=== PATIENT | male | born 1960 | race Caucasian/White ===

== ENCOUNTER 2016-05-23 16:32 | Emergency (ER) | payer MEDICARE ==
[~2016-05-23] VITALS: Ht 175.3 cm; Wt 85.0 kg
[~2016-05-23 16:32] MED LIST: ACET-2198 PO; ALEN70TA48 PO; AMLO10TA57 PO; CERA453C2 TOP; CLOB15CR4 TOP; FLUT16SP EA NOSTRIL; GUAI100L60 PO; HYDR30CR53 TOP; IBUP-1724 PO; LORA-358 PO; LOSA1TAB23 PO; MAG-76 PO; MAGN400O4 PO; OMEP20CA81 PO; PHEN100C4 PO; POTA-81 PO; SERT100T12 PO; SERT50TA12 PO; SIMV10TA6 PO; SOLI10TA4 PO; TAMS0.4C46 PO; TRIA15CR3 TOP; [UNRECOGNIZED DRUG - CODE] PO
[2016-05-23 16:35] VITALS: Ht 175.3 cm; Wt 85.0 kg
--- OUTSIDE RECORDS SUMMARY | 2016-05-23 16:37 | XMS REPORT | Continuity of Care Document ---
Author Author [facility] Organization [facility] Address Unknown Phone Unavailable Support Name Relationship Address Phone CAROL ANN ROSARIO DO Caregiver [address] [place] [address] Unavailable KIYA AYOUB MD Caregiver [address] [place] [address] [place] [address] Unavailable GYPSY RUSSO Next Of Kin Unknown [phone] Insurance Providers Guarantor Hamilton Rodgers Address [address] [place] [address] * Email DENIED 16 Payer Medicare Policy Number [id number] Subscriber's Name Hamilton Rodgers Relationship 18 Self Effective Date 86 Advance Directives Directive Response Recorded Date/Time Advanced Directives Type None 02/23/16 1:13pm Chief Complaint and Reason for Visit Chief Complaint Fall Reason for Visit Syncope Problems Active Problems Medical Problem Onset Date Status Chin laceration Unknown Acute Closed head injury Unknown Acute Contusion of rib on left side Unknown Acute Contusion of rib on left side Unknown Acute Contusion of rib on left side Unknown Acute Contusion of rib on left side Unknown Acute Contusion of scalp Unknown Acute Fall Unknown Acute Head contusion Unknown Acute Impetigo Unknown Acute Lumbar pain Unknown Acute Lumbar pain Unknown Acute Skin infection Unknown Acute Wrist pain Unknown Acute Wrist pain Unknown Acute left gluteal abscess-I&D Unknown Acute Past Problems Medical Problem Onset Date Back contusion Unknown Closed fracture of distal clavicle Unknown Musculoskeletal neck pain Unknown Syncope Unknown Medications Current Home Medications Medication Dose Units Route Directions Days Qty Instructions Start Date Acetaminophen (Mapap) 325 Mg Tablet 325-650 Mg Oral Every 6 Hours as needed for Pain/Fever 02/12/16 Alendronate Sodium 70 Mg Tablet 70 Mg Oral Every 7 Days 11/05/14 Amlodipine Besylate (Norvasc) 10 Mg Tablet 10 Mg Oral Daily 09/23 Aspirin (Ecotrin) 81 Mg Tablet. 81 Mg Oral Bedtime 09/23/09 Ceramides 1,3,6-11 (Cerave) 453 Gm Cream..g. 1 Applic Topically Daily 08/10/14 Clobetasol Propionate 15 Gm Cream..g. 1 Applic Topically Twice A Day as needed for Prn Orders 02/12/16 Fluticasone Propionate (Fluticasone Prop 50 Mcg/Actuation Nasal [place]) 120 [place]/16 G [place] 1 [place] Each Nostril Daily 12/12/15 Guaifenesin (Siltussin Sa) 100 Mg/5 Ml Liquid 10-20 Ml Oral Every 4 Hours as needed for Cough 02/12/16 Hydrocortisone 30 Gm Cream..g. 1 Applic Topically Four Times Daily as needed for Itching 02/12/16 Ibuprofen 200 Mg Tablet 200-400 Mg Oral Every 4-6 Hours as needed for Pain 02/12/16 Loratadine 10 Mg Tablet 10 Mg Oral Daily 06/03/11 Losartan/Hydrochlorothiazide (Hyzaar 100-25 Tablet) 1 Tab Tablet 1 Tab Oral Bedtime 09/23/09 Mag Hydrox/Al Hydrox/Simeth (Antacid Liquid) 355 Ml Oral.susp 10-20 Ml Oral Four Times Daily as needed for Indigestion 02/12/16 Magnesium Hydroxide (Milk Of Magnesia) 400 Mg/5 Ml Oral.susp 30-60 Ml Oral Daily as needed for Constipation 02/12/16 Omeprazole (Prilosec) 20 Mg Capsule.dr 20 Mg Oral Daily 09/23/09 Phenytoin Sodium Extended (Dilantin) 100 Mg Capsule 200 Mg Oral Bedtime 11/12/15 Potassium Chloride 20 Meq Tablet.er 20 Meq Oral Give With Breakfast Take 1 tablet, by mouth, daily with breakfast. 02/12/16 Sertraline Hcl (Sertraline) 50 Mg Tablet 50 Mg Oral Daily TAKE WITH 100 MG TO EQUTL 150 MG DAILY 12/12/15 Sertraline Hcl (Sertraline) 100 Mg Tablet 100 Mg Oral Daily TAKE WITH 50 MG TO EQUAL 150 MG DAILY 08/10/14 Simvastatin 10 Mg Tablet 10 Mg Oral Bedtime 08/10/14 Solifenacin (Vesicare) 10 Mg Tablet 10 Mg Oral Daily 08/23/13 Tamsulosin Hcl 0.4 Mg Cap.er.24h 0.4 Mg Oral Bedtime 08/23/13 Triamcinolone (Triamcinolone Acetonide) 15 Applic/15 G Cr 1 Applic Topically Twice A Day 11/12/15 Past Home Medications Medication Directions Ordered Status Acetaminophen/Codeine Phosphate (Tylenol #3) 1 Tab Tablet, 1-2 Tab Oral Every Six Hours for Pain 09/01/13 Discontinued Darifenacin Hydrobromide (Enablex) 15 Mg Tab.sr.24h, 09/23/09 Discontinued Fexofenadine Hcl (Allie) 180 Mg Tablet, 1 Tab Oral Daily 09/23/09 Discontinued Fish Oil , 1000 Mg Oral Daily 09/16/09 Discontinued Lorazepam 0.5 Mg Tablet, 0.5 Mg Oral As Needed 08/23/13 Discontinued Mag Hydrox/Al Hydrox/Simeth (Maalox Plus X-Strength Susp) 355 Ml Oral.susp, 20 Ml Oral As Needed 07/27/08 Discontinued Meloxicam (Mobic) 15 Mg Tablet, 15 Mg Oral Daily 06/03/11 Discontinued Mineral Oil , 09/23/09 Discontinued Mineral Oil , 09/16/09 Discontinued Nasal [place] , 09/16/09 Discontinued Oxybutynin (Oxytrol) 1 Patch.bwk Patch.tdsw, 1 Patch Topically Twice A Week 07/27/08 Discontinued Phenytoin Sodium Extended (Dilantin) 100 Mg Capsule, 2 Cap Oral Bedtime 07/27 Discontinued Prilosec , 20 Mg Oral Daily 09/16/09 Discontinued Rhinocort Aqua 32MCG , 1 Puff Nasal Daily 07/27/08 Discontinued Sertraline Hcl (Zoloft) 100 Mg Tablet, 100 Mg Oral Bedtime 06/03/11 Discontinued Solifenacin (Vesicare) 10 Mg Tablet, 1 Tab Oral Daily 07/27/08 Discontinued Vit C/Echin Purp/Herb11 (Vit C 500 Mg-Echinacea Tab) 500 Mg Tablet, 2 Tab Oral Daily 09/16/09 Discontinued Vitamin E Mixed (Vitamin E) 400 Unit Capsule, 1 Tab Oral Daily 09/23/09 Discontinued Social History Social History Problem Response Recorded Date/Time Onset Date Status Hx Substance Use No 02/23/2016 2:00pm Not Applicable Not Applicable Hx Alcohol Use No 02/23/2016 2:00pm Not Applicable Not Applicable Query Response Start Date Stop Date Smoking Status Unknown if ever smoked Hospital Discharge Instructions No hospital discharge instructions. Plan of Care Discharge Date 02/23/16 4:05pm Disposition 01 DISCHARGED HOME, SELF-CARE Condition at Discharge Stable Instructions/Education Provided DI for Syncope in Adults (Fainting) Prescriptions See Medication Section Referrals NEDICH,CAROL ANN L DO Address: [address] [phone] Additional Instructions/Education Labs were normal except for slight elevation of prolactin which could indicate a seizure. However patient was not postictal with no loss of bladder control. Patient's phenytoin level is normal. Patient head CT indicated no acute findings. Patient should follow with PCP in next 2 days for re-evaluation. Care Plan and Goals Physician Care Plan Problem: Syncope Goal: Follow up with primary care provider in next 2 days Instructions: Take medications and follow care plan as discussed/written Functional Status No functional status results. Allergies, Adverse Reactions, Alerts Allergen Type Severity Reaction Status Last Updated Nitrofurantoin Macrocrystal Allergy Unknown Active 02/23/16 Penicillin Adverse Reaction Unknown Active 02/23/16 Influenza Virus Vaccines Allergy Unknown Active 02/23/16 Iodine Allergy Unknown Active 02/23/16 Erythromycin base Allergy Unknown Active 02/23/16 Nitrofurantoin Allergy Unknown Active 02/23/16 Immunizations Query Response on File Recorded Date/Time Hx Influenza Vaccination N UNKWN 11/04/14 8:20pm Hx Influenza Vaccination N UNKWN 11/04/14 8:20pm Influenza Vaccine Hx NO 02/23/16 2:01pm Vital Signs Acute Vital Signs Vital Response Date/Time Temperature (Fahrenheit) 98.0 deg F (96.8 - 99.1) 02/23/2016 1:13pm Temperature (Calculated Celsius) 36.23210 degrees C (36.0 - 37.3) 02/23/2016 1:13pm Pulse Rate (adult) 73 bpm (60 - 100) 02/23/2016 4:05pm Respiratory Rate 16 breaths/min (10 - 20) 02/23/2016 4:05pm O2 Sat by Pulse Oximetry 98 % (90 - 100) 02/23/2016 4:05pm Blood Pressure 144/93 mm Hg 02/23/2016 4:05pm Height (Feet) 5 feet 02/23/2016 1:13pm Height (Inches) 8.00 inches 02/23/2016 1:13pm Weight (Kilograms) 80.400 kg 02/23/2016 1:13pm Body Mass Index (BMI) 26.0 02/23/2016 1:13pm Results Laboratory Results Test Name Result Units Flags Reference Collection Date/Time Result Date/ Time Comments White Blood Count 4.9 T/MM3 4.5-11.0 02/23/2016 2:02/23/2016 2: 36pm Red Blood Count 5.22 M/MM3 4.50-5.90 02/23/2016 2:02/23/2016 2: 36pm Hemoglobin 16.9 GM/DL 13.5-17.5 02/23/2016 2:02/23/2016 2:36pm Hematocrit 48.5 % 41-53 02/23/2016 2:02/23/2016 2:36pm Mean Corpuscular Volume 92.9 UM3 80-100 02/23/2016 2:02/23/2016 2: 36pm Mean Corpuscular Hemoglobin 32.4 UUG 26-34 02/23/2016 2:2016 2:36pm Mean Corpuscular Hemoglobin Concent 34.8 GM/DL 31-37 02/23/2016 2:02/23/2016 2:36pm RDW Standard Deviation 46.2 FL 36.9-50.2 02/23/2016 2:02/23/2016 2 :36pm Platelet Count 143 T/MM3 130-400 02/23/2016 2:02/23/2016 2:36pm Mean Platelet Volume 11.5 UM3 9.4-12.4 02/23/2016 2:02/23/2016 2: 36pm Neutrophils (%) (Auto) 70.9 % H 33-66 02/23/2016 2:02/23/2016 2: 36pm Lymphocytes (%) (Auto) 15.8 % L 23-45 02/23/2016 2:02/23/2016 2: 36pm Monocytes (%) (Auto) 10.9 % H 0-9.0 02/23/2016 2:02/23/2016 2:36pm Eosinophils (%) (Auto) 2.0 % 0-4 02/23/2016 2:02/23/2016 2:36pm Basophils (%) (Auto) 0.2 % 0-2 02/23/2016 2:02/23/2016 2:36pm Immature Granulocyte % (Auto) 0.2 % 0.0-0.5 02/23/2016 2:2016 2:36pm Absolute Neutrophils (auto) 3.5 T/MM3 1.8-7.7 02/23/2016 2:2016 2:36pm Absolute Lymphocytes (auto) 0.8 T/MM3 L 1-4.8 02/23/2016 2:2016 2:36pm Absolute Monocytes (auto) 0.5 T/MM3 0-0.8 02/23/2016 2:02/23/2016 2:36pm Absolute Eosinophils (auto) 0.1 T/MM3 0-0.5 02/23/2016 2:2016 2:36pm Absolute Basophils (auto) 0.0 T/MM3 0-0.2 02/23/2016 2:02/23/2016 2:36pm Absolute Immature Granulocyte (auto 0.01 T/MM3 0.00-0.03 02/23/2016 2: 02/23/2016 2:36pm Icterus Index < 2 0-7 02/23/2016 2:02/23/2016 2:47pm Chemistry Specimen Hemolysis < 15 0-25 02/23/2016 2:02/23/2016 2 :47pm 0-25: Specimen Exhibited No Hemolysis. Turbidity < 20 0-20 02/23/2016 2:02/23/2016 2:47pm Sodium Level 138 MEQ/L 134-144 02/23/2016 2:02/23/2016 2:47pm Potassium Level 3.6 MEQ/L 3.6-5 02/23/2016 2:02/23/2016 2:47pm Chloride Level 99 MEQ/L 98-107 02/23/2016 2:02/23/2016 2:47pm Carbon Dioxide Level 27 MEQ/L 22-30 02/23/2016 2:02/23/2016 2: 47pm Anion Gap 12 MEQ/L 5-15 02/23/2016 2:02/23/2016 2:47pm Blood Urea Nitrogen 10.0 MG/DL 9-20 02/23/2016 2:02/23/2016 2: 47pm Creatinine 0.7 MG/DL L 0.8-1.5 02/23/2016 2:02/23/2016 2:47pm BUN/Creatinine Ratio 14 RATIO 6-26 02/23/2016 2:02/23/2016 2:47pm Glomerular Filtration Rate Calc 117 02/23/2016 2:02/23/2016 2: 47pm Glucose Level 111 MG/DL H 75-110 02/23/2016 2:02/23/2016 2:47pm Calculated Osmolality 266 MOSM/KG 261-280 02/23/2016 2:02/23/2016 2:47pm Calcium Level 9.4 MG/DL 8.4-10.2 02/23/2016 2:02/23/2016 2:47pm Total Bilirubin 0.50 MG/DL 0.20-1.30 02/23/2016 2:02/23/2016 2: 47pm Alkaline Phosphatase 66 U/L 38-126 02/23/2016 2:02/23/2016 2:47pm Total Protein 7.9 G/DL 6.3-8.2 02/23/2016 2:02/23/2016 2:47pm Albumin 4.4 G/DL 3.5-5.0 02/23/2016 2:02/23/2016 2:47pm Globulin 3.5 G/DL 2.4-3.6 02/23/2016 2:02/23/2016 2:47pm Albumin/Globulin Ratio 1.3 RATIO 1.1-2.2 02/23/2016 2:02/23/2016 2 :47pm Aspartate Amino Transf (AST/SGOT) 25 U/L 17-59 02/23/2016 2:2016 2:47pm Alanine Aminotransferase (ALT/SGPT) 51 U/L 21-72 02/23/2016 2:10/2016 2:47pm Troponin I < 0.012 ng/ml 0-0.12 02/23/2016 2:02/23/2016 2:58pm Troponin values with a difference of 55% increase from orginal troponin value represent a true biological DELTA value. (%increase Calc=Orginal Troponin value, divided by subsequent Troponin value, multiplied by 100) Phenytoin (Dilantin) Level 12.0 UG/ML 10-20 02/23/2016 2:28pm 2016 2:48pm Prolactin 24.1 NG/ML 02/23/2016 2:28pm 02/23/2016 3:03pm Normal Female (Non-): 3.0-18.6 ng/ml; Males: 3.7-17.9 ng/ml Urine Collection Type VOIDED-NOT CC-MIDSTR 02/23/2016 2:282016 2:36pm Urine Color YELLOW YELLOW 02/23/2016 2:28pm 02/23/2016 2:36pm Urine Turbidity CLEAR CLEAR 02/23/2016 2:28pm 02/23/2016 2:36pm Urine Specific [place] 1.010 L 1.015-1.025 02/23/2016 2:28pm 2016 2:36pm Urine pH 6.5 5.0-8.0 02/23/2016 2:28pm 02/23/2016 2:36pm Urine Leukocyte Esterase NEGATIVE NEGATIVE 02/23/2016 2:28pm 2016 2:36pm Urine Nitrite NEGATIVE NEGATIVE 02/23/2016 2:28pm 02/23/2016 2:36pm Urine Protein NEGATIVE NEGATIVE 02/23/2016 2:28pm 02/23/2016 2:36pm Urine Glucose (UA) NEGATIVE NEGATIVE 02/23/2016 2:28pm 02/23/2016 2: 36pm Urine Ketones NEGATIVE NEGATIVE 02/23/2016 2:28pm 02/23/2016 2:36pm Urine Urobilinogen 0.2 EU/DL NORMAL 02/23/2016 2:28pm 02/23/2016 2: 36pm Urine Bilirubin NEGATIVE NEGATIVE 02/23/2016 2:28pm 02/23/2016 2: 36pm Urine Blood NEGATIVE NEGATIVE 02/23/2016 2:28pm 02/23/2016 2:36pm Urinalysis Comment MICROSCOPIC NOT IND. 02/23/2016 2:28pm 2016 2:36pm Name: HAMILTON RODGERS Unit #: [id number] : [id number] Sex: M Admit Date: Loc / Svc: ED Discharge Date: DIAGNOSTIC IMAGING REPORT Report #: [id number] [facility] BRIANNA Lloyd Indication: ITS.REASON: fell, unwitnessed PROCEDURE: CT HEAD W/O CONTRAST: Encounter: Initial Comparison: Brain CT, 08/10/2014 Technique: Axial CT images through the head were performed without contrast. FINDINGS: There is ventriculomegaly consistent with cerebral atrophy and there is prominent transcortical right middle cerebral artery infarction with associated encephalomalacia of the right frontotemporoparietal region and the basal ganglia on the right due to lenticulostriate involvement. No acute infarction, hemorrhage, or mass. There is prominent cerebellar atrophy with chronic ischemic changes of the cerebellum. Visualized paranasal sinuses are clear. No sinus wall expansion or destructive process. IMPRESSION: 1. No acute intracranial abnormality or hemorrhage. 2. Extensive chronic right MCA distribution infarction. 3. Negative for acute intra-cranial process. . Procedures Procedure Status Date Provider(s) Ther/proph/diag inj sc/im Completed 12/12/15 Emergency dept visit Completed 12/12/15 600648"INJECTION, KETOROLAC TROMETHAMINE, PER 15 MG" Completed 12/12/15 X-ray exam l-s spine 2/3 vws Completed 12/24/15 Emergency dept visit Completed 12/24/15 X-ray exam ribs/chest4/> vws Completed 02/12/16 Emergency dept visit Completed 02/12/16 Encounters Encounter Location Arrival/Admit Date Discharge/Depart Date Attending Provider Departed Emergency Room [facility] 02/23/16 1:10pm 02/23/16 4: 05pm KIYA AYOUB MD Departed Emergency Room [facility] 02/12/16 6:21pm 02/12/16 7: 32pm KIYA AYOUB MD Departed Emergency Room [facility] 12/24/15 3:49pm 12/24/15 5: 35pm LIANG MARCELINO MD Departed Emergency Room [facility] 12/12/15 4:49pm 12/12/15 5: 45pm KIYA AYOUB MD Recent Diagnosis
--- OUTSIDE RECORDS SUMMARY | 2016-05-23 16:38 | XMS REPORT | Continuity of Care Document ---
Author Author [facility] Organization [facility] Address Unknown Phone Unavailable Allergies Active Description Code Type Severity Reaction Onset Reported/Identified Relationship to Patient Clinical Status Yes FLU SHOT Drug Allergy N/A N/A Yes IODINE 5933 Drug Allergy N/A N/A Yes MACROLIDE Drug Allergy N/A N/A Yes PCN Drug Allergy N/A N/A Yes iodine NKMA N/A N/A 06/14/2013 Yes penicillin NKMA N/A N/A 06/14/2013 Yes macrolide antibiotics NKMA N/A N/A 08/20/2013 Yes influenza virus vaccine, inact NKMA N/A N/A 06/13/2014 Medications Medication Packaging Start Date Stop Date Route Dosage Sig [id number] 02/21/2012 ORAL daily [id number] 05/11/2013 ORAL twice daily [id number] 11/05/2013 ORAL every 8 hours [id number] 2014 ORAL [id number] 07/30/2014 ORAL [id number] 08/30/2014 ORAL [id number] 09/05/2014 ORAL [id number] 10/01/2014 ORAL Problems Date Dx Coded Attending Type Code Diagnosis Diagnosed By 09/03/2014 Yoav Nunez MD 438.89 OTH LATE EFFECT-CEREBROVASCULAR DISEASE 09/03/2014 Yoav Nunez MD 729.5 PAIN IN LIMB 09/03/2014 Yoav Nunez MD 729.5 PAIN IN LIMB 09/03/2014 Yoav Nunez MD 780.79 OTH MALAISE FATIGUE 09/03/2014 Yoav Nunez MD 729.5 PAIN IN LIMB 09/03/2014 Yoav Nunez MD 780.79 OTH MALAISE FATIGUE 09/03/2014 Yoav Nunez MD 729.5 PAIN IN LIMB 09/03/2014 Yoav Nunez MD 780.79 OTH MALAISE FATIGUE 09/03/2014 Enrique PHAM, Yoav Ford 438.89 OTH LATE EFFECT-CEREBROVASCULAR DISEASE 09/03/2014 Enrique PHAM, Yoav Ford 729.5 PAIN IN LIMB 09/18/2014 Enrique PHAM, Yoav Ford 438.89 OTH LATE EFFECT-CEREBROVASCULAR DISEASE 09/18/2014 Enrique PHAM, Yoav Ford 438.89 OTH LATE EFFECT-CEREBROVASCULAR DISEASE 09/18/2014 Enrique PHAM, Yoav Ford 438.89 OTH LATE EFFECT-CEREBROVASCULAR DISEASE 09/18/2014 Enrique PHAM, Yoav Ford 438.89 OTH LATE EFFECT-CEREBROVASCULAR DISEASE 09/18/2014 Enrique PHAM, Yoav Ford 438.89 OTH LATE EFFECT-CEREBROVASCULAR DISEASE 09/18/2014 Enrique PHAM, Yoav Ford 438.89 OTH LATE EFFECT-CEREBROVASCULAR DISEASE 09/18/2014 Enrique PHAM, Yoav Ford V57.21 09/18/2014 Enrique PHAM, Yoav Ford 438.89 OTH LATE EFFECT-CEREBROVASCULAR DISEASE 09/18/2014 Yoav Nunez MD 438.89 OTH LATE EFFECT-CEREBROVASCULAR DISEASE 09/18/2014 Yoav Nunez MD 438.89 OTH LATE EFFECT-CEREBROVASCULAR DISEASE 09/18/2014 Yoav Nunez MD 438.89 OTH LATE EFFECT-CEREBROVASCULAR DISEASE 09/18/2014 Enrique PHAM, Yoav Ford 438.89 OTH LATE EFFECT-CEREBROVASCULAR DISEASE 09/18/2014 Yoav Nunez MD 438.89 OTH LATE EFFECT-CEREBROVASCULAR DISEASE 03/17/2015 Consuelo Alvarez MD S62.601D FX UNSP PHALANX OF L IDX FNGR, SUBS FOR 03/21/2015 Consuelo Alvarez MD S62.601D FX UNSP PHALANX OF L IDX FNGR, SUBS FOR 03/27/2015 Consuelo Alvarez MD S62.601D FX UNSP PHALANX OF L IDX FNGR, SUBS FOR 03/27/2015 Consuelo Alvarez MD S62.601D FX UNSP PHALANX OF L IDX FNGR, SUBS FOR Procedures Results Encounters ACCT No. Visit Date/Time Discharge Status Pt. Type Provider Facility Loc./Unit Complaint [id number] 04/11/2013 15:34:00 04/11/2013 23 :59:59 CLS Outpatient [id number] 03/28/2013 16:14:00 03/28/2013 23 :59:59 CLS Outpatient [id number] 01/22/2013 13:27:00 01/22/2013 23 :59:59 CLS Outpatient
--- OUTSIDE RECORDS SUMMARY | 2016-05-23 16:38 | XMS REPORT | Continuity of Care Document ---
Author Author [facility] Organization [facility] Address Unknown Phone Unavailable Care Team Providers Care Pattern Developer Name Role Phone COLBY SANCHEZ MD Primary Care Physician [phone] Insurance Providers Payer Name Policy Number Subscriber Name Relationship Medicare [id number] Hamilton Rodgers 17 Self Stefani Thurston [employer] Plan [id number] Hamilton Rodgers 18 Self Problems Medical Problems Problem Onset Date Status left gluteal abscess-I&D Unknown Active Contusion of rib on left side Unknown Active Head contusion Unknown Active Contusion of rib on left side Unknown Active Contusion of rib on left side Unknown Active Wrist pain Unknown Active Contusion of rib on left side Unknown Active Wrist pain Unknown Active Lumbar pain Unknown Active Chin laceration Unknown Active Fall Unknown Active Medications Medication Dose Route Sig Days/Qty Instructions Order Date Discontinued Date Status Alendronate Sodium 1 Tab PO WEEKLY 09/23/09 Active Fexofenadine Hcl 1 Tab PO DAILY 09/23/09 06/03/11 Discontinued Phenytoin Sodium Extended 2 Cap PO BEDTIME 07/27/08 09/16/09 Discontinued Aspirin 1 Tab PO BEDTIME 09/23/09 Active [Fish Oil] 1,000 Mg PO DAILY 09/16/09 09/23/09 Discontinued Losartan/Hydrochlorothiazide 1 Tab PO BEDTIME 09/23/09 Active Mag Hydrox/Al Hydrox/Simeth 20 Ml PO NEEDED 07/27/08 09/16/09 Discontinued Potassium Chloride 20 Meq PO DAILY 09/23/09 Active Amlodipine Besylate 1 Tab PO DAILY 09/23/09 Active Oxybutynin 1 Patch TOP TWICE A WEEK 07/27/08 09/16/09 Discontinued [Prilosec] 20 Mg PO DAILY 09/16/09 09/23/09 Discontinued [Rhinocort Aqua 32MCG] 1 Puff NA DAILY 07/27/08 09/16/09 Discontinued Solifenacin 1 Tab PO DAILY 07/27/08 09/16/09 Discontinued Vit C/Echin Purp/Herb11 2 Tab PO DAILY 09/16/09 09/23/09 Discontinued Darifenacin Hydrobromide 09/23/09 10/28/12 Discontinued [Mineral Oil] 09/16/09 09/23/09 Discontinued [Nasal [place]] 09/16/09 09/23/09 Discontinued Fluticasone Propionate 1 [place] INH DAILY 09/23/09 Active [Mineral Oil] 09/23/09 06/03/11 Discontinued Omeprazole 20 Mg PO DAILY 09/23/09 Active Vitamin E Mixed 1 Tab PO DAILY 09/23/09 09/10/11 Discontinued Loratadine 10 Mg PO DAILY 06/03/11 Active Sertraline Hcl 100 Mg PO BEDTIME TAKE 2 TABS DAILY 06/03/11 10/28/12 Discontinued Meloxicam 15 Mg PO DAILY 06/03/11 10/28/12 Discontinued Docusate Sodium 100 Mg PO EVERY OTHER DAY 06/03/11 Active Ibuprofen 200 Mg PO NEEDED 10/28/12 Active Solifenacin 10 Mg PO DAILY 08/23/13 Active Tamsulosin Hcl 0.4 Mg PO BEDTIME 08/23/13 Active Carbamide Peroxide 15 Ml OT MONTHLY 08/23/13 Active Phenytoin 900 Mg BEDTIME 08/23/13 Active Lorazepam 0.5 Mg PO NEEDED 08/23/13 Active Sertraline Hcl 100 Mg PO DAILY 08/23/13 Active Lorazepam 0.5 Mg PO TWICE A DAY 09/01/13 Active Acetaminophen/Codeine Phosphate 1-2 Tab PO EVERY SIX HOURS For PAIN 30 Qty 09/01/13 Active Social History Social History Problem Response Recorded Date/Time Smoking Status Unknown if ever smoked 08/22/2013 11:10pm Hx Alcohol Use No 09/01/2013 9:35am Query Response Start Date Stop Date Smoking Status Never smoker Hospital Discharge Instructions No hospital discharge instructions. Plan of Care No plan of care. Functional Status Query Response Date Recorded Physical Hygiene Assist September 01, 2013 9:35am Disabilities None September 01, 2013 9:35am Devices Used Cane Prothesis September 01, 2013 9:35am Dressing Assist September 01, 2013 9:35am Ambulation Assist September 01, 2013 9:35am Diet Assist September 01, 2013 9:35am Mental Status Alert August 23, 2013 2:30am Disabilities None September 01, 2013 9:35am Devices Used Cane Prothesis September 01, 2013 9:35am Physical Hygiene Assist September 01, 2013 9:35am Dressing Assist September 01, 2013 9:35am Ambulation Assist September 01, 2013 9:35am Diet Assist September 01, 2013 9:35am Allergies, Adverse Reactions, Alerts Allergen Type Severity Reaction Status Last Updated Nitrofurantoin Macrocrystal Allergy Unknown Active 10/28/12 Penicillin Adverse Reaction Unknown Active 10/28/12 Iodine Allergy Unknown Active 10/28/12 Erythromycin base Allergy Unknown Active 10/28/12 Nitrofurantoin Allergy Unknown Active 10/28/12 Immunizations Name Given Type Hx Influenza Vaccination UNKWN Historical Hx Influenza Vaccination UNKWN Historical Vital Signs Acute Vital Signs Vital Response Date/Time Temperature (Fahrenheit) 97.6 deg F (96.8 - 99.1) Temperature (Calculated Celsius) 36.84389 degrees C (36.0 - 37.3) Pulse Rate (adult) 76 bpm (60 - 100) Respiratory Rate 16 breaths/min (10 - 20) O2 Sat by Pulse Oximetry 95 % (90 - 100) Blood Pressure 132/96 mm Hg Height 5 ft 9 in Weight 179 lb Body Mass Index 26.0 kg/m^2 Results Test Source Date Result Interp. Ref. Range Comments Alanine Aminotransferase (ALT/SGPT) September 01, 2013 12:38pm 48 U/L N 21- 72 Albumin September 01, 2013 12:38pm 3.9 G/DL N 3.5-5.0 Albumin/Globulin Ratio September 01, 2013 12:38pm 1.2 RATIO N 1.1-2.2 Alkaline Phosphatase September 01, 2013 12:38pm 79 U/L N 38-126 Anion Gap September 01, 2013 12:38pm 10 MEQ/L N 5-15 Aspartate Amino Transf (AST/SGOT) September 01, 2013 12:38pm 26 U/L N 17-59 BUN/Creatinine Ratio September 01, 2013 12:38pm 23 RATIO N 6-26 Basophils # (Auto) September 01, 2013 12:38pm 0.0 T/MM3 N 0-0.2 Basophils (%) (Auto) September 01, 2013 12:38pm 0.4 % N 0-2 Blood Urea Nitrogen September 01, 2013 12:38pm 14.0 MG/DL N 9-20 Calcium Level September 01, 2013 12:38pm 8.5 MG/DL N 8.4-10.2 Calculated Osmolality September 01, 2013 12:38pm 265 MOSM/KG N 261-280 Carbon Dioxide Level September 01, 2013 12:38pm 25 MEQ/L N 22-30 Chemistry Specimen Hemolysis September 01, 2013 12:38pm < 15 0-25 0-25: No Hemolysis.26-70: Slight Hemolysis - can falsely elevate K and Urine Protein. 71-285: Moderate Hemolysis - can falsely elevate K, Troponin I, CA 19-9, PTH, CSF GLucose, and Urine Protein, and can falsely decrease Phenytoin. 286-999: Gross Hemolysis - can falsely elevate K, Troponin I, CA 19-9, PTH, CSF Glucose, and Urine Protine, and can falsely decrease Phenytoin. Recommend specimen recollection. Chloride Level September 01, 2013 12:38pm 102 MEQ/L N 98-107 Conjugated Bilirubin November 12, 2011 1:05am 0.00 MG/DL N 0.00-0.30 Creatinine September 01, 2013 12:38pm 0.6 MG/DL L 0.8-1.5 Eosinophils # (Auto) September 01, 2013 12:38pm 0.2 T/MM3 N 0-0.5 Eosinophils (%) (Auto) September 01, 2013 12:38pm 2.6 % N 0-4 Globulin September 01, 2013 12:38pm 3.2 G/DL N 2.4-3.6 Glomerular Filtration Rate Calc September 01, 2013 12:38pm 140 - Glucose Level September 01, 2013 12:38pm 107 MG/DL N 75-110 Hematocrit September 01, 2013 12:38pm 45.4 % N 41-53 Hemoglobin September 01, 2013 12:38pm 15.9 GM/DL N 13.5-17.5 Icterus Index September 01, 2013 12:38pm < 2 0-7 Immature Granulocyte # (Auto) September 01, 2013 12:38pm 0.02 T/MM3 N 0.00- 0.03 Immature Granulocyte % (Auto) September 01, 2013 12:38pm 0.3 % N 0.0-0.5 Lab Scanned Report November 16, 2011 8:08am REFERENCE LAB [id number] - Levetiracetam (Keppra) Level November 12, 2011 1:05am Ref lab rpt scanned - --- 11/16/11 [id number] ---LEVET previously reported as: SEND OUT Lymphocytes # (Auto) September 01, 2013 12:38pm 1.1 T/MM3 N 1-4.8 Lymphocytes (%) (Auto) September 01, 2013 12:38pm 14.5 % L 23-45 Mean Corpuscular Hemoglobin September 01, 2013 12:38pm 32.1 UUG N 26-34 Mean Corpuscular Hemoglobin Concent September 01, 2013 12:38pm 35.0 GM/DL N 31-37 Mean Corpuscular Volume September 01, 2013 12:38pm 91.5 UM3 N 80-100 Mean Platelet Volume September 01, 2013 12:38pm 11.5 UM3 N 9.4-12.4 Monocytes # (Auto) September 01, 2013 12:38pm 0.9 T/MM3 H 0-0.8 Monocytes (%) (Auto) September 01, 2013 12:38pm 11.9 % H 0-9.0 Neutrophils # (Auto) September 01, 2013 12:38pm 5.4 T/MM3 N 1.8-7.7 Neutrophils (%) (Auto) September 01, 2013 12:38pm 70.3 % H 33-66 Phenytoin (Dilantin) Level September 01, 2013 12:38pm 24.8 UG/ML H 10-20 Platelet Count September 01, 2013 12:38pm 163 T/MM3 N 130-400 Potassium Level September 01, 2013 12:38pm 3.5 MEQ/L L 3.6-5 RDW Standard Deviation September 01, 2013 12:38pm 47.1 FL N 36.9-50.2 Red Blood Count September 01, 2013 12:38pm 4.96 M/MM3 N 4.50-5.90 Sodium Level September 01, 2013 12:38pm 137 MEQ/L N 134-144 Tests Not Done July 27, 2008 10:47pm Not done - Has specimen been collected/obtained? Y Thyroid Stimulating Hormone (TSH) September 23, 2009 10:05pm 0.84 MIU/ML N 0.47-4.68 Total Bilirubin September 01, 2013 12:38pm 0.20 MG/DL N 0.20-1.30 Total Protein September 01, 2013 12:38pm 7.1 G/DL N 6.3-8.2 Turbidity September 01, 2013 12:38pm < 20 0-20 Unconjugated Bilirubin November 12, 2011 1:05am 0.00 MG/DL N 0.00-1.10 Urinalysis Comment September 01, 2013 1:20pm Microscopic not ind. - Has specimen been collected/obtained? Y Urine Acetaminophen Screen November 12, 2011 1:00am Negative NG/ML - Urine Amphetamines Screen November 12, 2011 1:00am Negative NG/ML - Urine Barbiturates Screen November 12, 2011 1:00am Negative NG/ML - Urine Benzodiazepines Screen November 12, 2011 1:00am Negative NG/ML - Urine Bilirubin September 01, 2013 1:20pm Negative - Has specimen been collected/obtained? Y Urine Blood September 01, 2013 1:20pm Negative - Has specimen been collected/obtained? Y Urine Cannabinoids Screen November 12, 2011 1:00am Negative NG/ML - Urine Cocaine Screen November 12, 2011 1:00am Negative NG/ML - Urine Collection Type September 01, 2013 1:20pm Voided-not cc-midstr - Has specimen been collected/obtained? Y Urine Color September 01, 2013 1:20pm Yellow - Has specimen been collected /obtained? Y Urine Glucose (UA) September 01, 2013 1:20pm Negative - Has specimen been collected/obtained? Y Urine Ketones September 01, 2013 1:20pm Negative - Has specimen been collected/obtained? Y Urine Leukocyte Esterase September 01, 2013 1:20pm Negative - Has specimen been collected/obtained? Y Urine Methadone Screen November 12, 2011 1:00am Negative NG/ML - Urine Methamphetamines Screen November 12, 2011 1:00am Negative NG/ML - Urine Microscopic Not Indicated November 12, 2011 1:00am Not indicated - Has specimen been collected/obtained? Y Urine Nitrite September 01, 2013 1:20pm Negative - Has specimen been collected/obtained? Y Urine Opiates Screen November 12, 2011 1:00am Negative NG/ML - Urine Phencyclidine Screen November 12, 2011 1:00am Negative NG/ML - Urine Protein September 01, 2013 1:20pm Negative - Has specimen been collected/obtained? Y Urine Specific [place] September 01, 2013 1:20pm 1.010 L - Has specimen been collected/obtained? Y Urine Tricyclic Antidepressants November 12, 2011 1:00am Negative NG/ML - Urine Turbidity September 01, 2013 1:20pm Clear - Has specimen been collected/obtained? Y Urine Urobilinogen September 01, 2013 1:20pm 0.2 EU/DL - Has specimen been collected/obtained? Y Urine pH September 01, 2013 1:20pm 7.0 - Has specimen been collected/ obtained? Y White Blood Count September 01, 2013 12:38pm 7.7 T/MM3 N 4.5-11.0 Gram Stain Abscess October 28, 2012 6:15pm Procedures No known history of procedures. Encounters Encounter Location Date/Time Registered Emergency Room [facility] 09/01/13 9:27am Departed Emergency Room [facility] 08/22/13 11:09pm Recent Diagnosis
--- NOTE | 2016-05-23 16:39 | NUR ---
PROVIDER DR AYOUB IN ROOM TO SEE PT
--- OUTSIDE RECORDS SUMMARY | 2016-05-23 16:40 | XMS REPORT | Continuity of Care Document ---
Author Author [facility] Organization [facility] Address Unknown Phone Unavailable Allergies Active [...] Status Pt. Type Provider Facility Loc./Unit Complaint [id number] 04/11/2013 15:34:00 04/11/2013 23 :59:59 C[facility] Outpatient [id number] 03/28/2013 16:14:00 03/28/2013 23 :59:59 CLS Outpatient [id number] 01/22/2013 13:27:00 01/22/2013 23 :59:59 CLS Outpatient
--- NOTE | 2016-05-23 16:41 | ERPDOC ---
Departure Disposition Decision Date: May 23, 2016 Disposition Decision Time: 16:44 Disposition: 01 DISCHARGED HOME, SELF-CARE Impression Impression Impression: Primary Impression: Fall on same level Encounter type: initial encounter Qualified Codes: W18.30XA - Fall on same level, unspecified, initial encounter Additional Impression: Fall with no significant injury Encounter type: initial encounter Qualified Codes: W19.XXXA - Unspecified fall, initial encounter Severity: Mild Condition: Stable Seen By: Physician only Referrals: CAROL ANN ROSARIO DO (Family) Patient Instructions: Fall Prevention (ED) Problems/Meds/Labs Reviewed?: Yes Medications reviewed and manag: Yes Follow up care ordered?: Yes Mental Status: Alert, Oriented HPI - Fall/Injury General Chief Complaint: Fall Stated Complaint: FELL BACKWARDS Time Seen by Provider: 16:40 Source: patient Exam Limitations: no limitations HPI - Fall/Injury Initial Comments Patient is a [age]-year-old male, presents emergency room for evaluation status post fall. Patient fell at residential home, did hit the back of his head in a shoulder. Patient did not lose consciousness, patient is without complaint at this time, did tell staff at facility he was fine, however their policy as he is required to be evaluated by a physician. Patient without complaint Occurred At: home Onset: Rapid Duration: 1 hr Pain Scale: Now & Worst: 0/10 Injuries/Pain Location: no injury Loss of Consciousness: no loss of consciousness Allergies: Coded Allergies: Influenza Virus Vaccines (Verified Allergy, Unknown, 05/23/16) Nitrofurantoin Macrocrystal (Verified Allergy, Unknown, 05/23/16) erythromycin base (Verified Allergy, Unknown, 05/23/16) iodine (Verified Allergy, Unknown, 05/23/16) nitrofurantoin (Verified Allergy, Unknown, 05/23/16) Penicillins (Verified Adverse Reaction, Unknown, 05/23/16) Past History Past Medical History Metabolic: hypercholesterolemia, hypertension Respiratory: asthma GI: GERD Male: BPH Neurological: CVA, chronic disability, seizures Musculoskeletal: back pain, neck pain, other Integumentary: other Hematologic: DVT Psychological: depression Surgical History Joint: foot Family History Family PMH: FOUND: hypertension Vaccines Hx Influenza Vaccination: No (UNKWN) Social History Housing: other Current Occupational Status: unemployed, disabled Review of Systems Constitutional Constitutional: DENIES: fever Eyes Vision: DENIES: double vision, loss of visual carter ENMT Sinuses: DENIES: congestion, rhinorrhea Mouth/Throat: DENIES: scratchy throat, sore throat Cardiovascular Cardiac: DENIES: chest pain, dyspnea on exertion Pulmonary Respiratory: DENIES: cough, dyspnea, sputum, tachypnea GI Upper Abdomen: DENIES: nausea, pain, vomiting Lower Abdomen: DENIES: constipation, diarrhea, pain Musculoskeletal General: DENIES: cramps, pain, weakness Integumentary Skin: DENIES: color change, itching, rash Neurological General: DENIES: change in strength, headache, numbness, weakness Psychiatric Psychiatric: DENIES: emotional instability Endocrine Endocrine: DENIES: heat/cold intolerance Hematologic/Lymphatic Hematologic/Lymphatic: DENIES: anemia Physical Exam General General Nourishment: well nourished, well developed General Body Habitus: well groomed Vitals and Pain Weight: Kilograms: Height (feet): 5 Height (inches): 8.00 Triage Pain Scale: RN VS reviewed by Provider: Yes Eyes (brief) Eyes Brief: found: EOMI, PERRL ENMT (brief) ENMT Brief: FOUND: TM clear, TM good light reflex, ear canals clear, mucosa moist, normal dentition, NOT FOUND: nasal erythema, nasal exudate, nasal swelling, pharnyx erythema, tonsillar deviation Neck (brief) Neck: NOT FOUND: adenopathy, spasm, tenderness Respiratory (brief) Respiratory: FOUND: clear all carter, equal bilaterally, NOT FOUND: rales, tenderness, wheezes Cardiovascular (brief) Cardiac: FOUND: regular rate, regular rhythm Capillary Refill: <2 sec Abdomen (brief) Abdominal Brief: FOUND: bowel normo active x4, soft, NOT FOUND: distended, tender Lymphatic (brief) Lymphatic Brief: NOT FOUND: adenopathy Musculoskeletal (brief) Musculoskeletal Brief: NOT FOUND: spasm, tenderness Integumentary (brief) Integumentary Brief: FOUND: dry, pink, warm, NOT FOUND: rash Neurologic Mental Status: FOUND: alert, oriented GCS Adult : GCS Eye Opening: (4)Spontaneous GCS Verbal: (5)Oriented GCS Motor: (6)Obeys Commands GCS Total: 15 Cranial Nerves: FOUND: other (cranial nerves II through XII intact) Motor : Motor Side: bilateral Motor Location: biceps, triceps, wrist, finger extensors, finger flexors, quadriceps, hamstring, foot extension, foot flexion, building energy consultant strength Motor Degree: 3 Sensation: FOUND: soft touch intact x4 ext DTR's : DTR Side: bilateral DTR Location: Biceps, Patellar DTR Grade: 2+ Psychiatric (brief) Psychiatric Brief: FOUND: alert, oriented Differential Diagnoses Considering: Abrasion, Epidural Hematoma, Dislocation, Fracture, Sprain, Strain , Subdural Hematoma KIYA AYOUB MD May 23, 2016 16:41
--- NOTE | 2016-05-23 16:42 | NUR ---
Kailyn mcmahan in ED - 05/23/16 at [address] AYOUB AT BEDSIDE FOR EXAM.
--- OUTSIDE RECORDS SUMMARY | 2016-05-23 16:42 | XMS REPORT | Continuity of Care Document ---
Author Author [facility] Organization [facility] Address Unknown Phone Unavailable Care Team Providers Care Director [employer] Name Role Phone COLBY SANCHEZ MD Primary Care Physician [phone] Insurance Providers Payer Name Policy Number Subscriber Name Relationship Medicare [id number] Hamilton Rodgers 17 Self Stefani [place] [employer] Plan [id number] Hamilton Rodgers 17 Self Problems Medical Problems Problem Onset Date Status left gluteal abscess-I&D Unknown Active Contusion of rib on left side Unknown Active Head contusion Unknown Active Contusion of rib on left side Unknown Active Contusion of rib on left side Unknown Active Wrist pain Unknown Active Medications Medication Dose Route Sig Days/Qty Instructions Order Date Discontinued Date Status Alendronate Sodium 1 Tab PO WEEKLY 09/23/09 Active Fexofenadine Hcl 1 Tab PO DAILY 09/23/09 06/03/11 Discontinued Phenytoin Sodium Extended 2 Cap PO BEDTIME 07/27/08 09/16/09 Discontinued Aspirin 1 Tab PO BEDTIME 09/23/09 Active [Fish Oil] 1,000 Mg PO DAILY 09/16/09 09/23/09 Discontinued Tamsulosin Hcl 1 Cap PO BEDTIME 09/23/09 Active Garlic 1 Tab PO DAILY 09/23/09 Active Losartan/Hydrochlorothiazide 1 Tab PO BEDTIME 09/23/09 Active Levetiracetam 1,000 Mg PO TWICE A DAY TAKES 1000 MG IN AM AND 1500 MG IN PM 09/23/09 Active Mag Hydrox/Al Hydrox/Simeth 20 Ml PO NEEDED 07/27/08 09/16/09 Discontinued Potassium Chloride 20 Meq PO DAILY 09/23/09 Active Amlodipine Besylate 1 Tab PO DAILY 09/23/09 Active Calcium Carbonate/Vitamin D3 1 Tab PO TWICE A DAY 09/23/09 Active Oxybutynin 1 Patch TOP TWICE A WEEK 07/27/08 09/16/09 Discontinued [Prilosec] 20 Mg PO DAILY 09/16/09 09/23/09 Discontinued [Rhinocort Aqua 32MCG] 1 Puff NA DAILY 07/27/08 09/16/09 Discontinued Solifenacin 1 Tab PO DAILY 07/27/08 09/16/09 Discontinued Vit C/Echin Purp/Herb11 2 Tab PO DAILY 09/16/09 09/23/09 Discontinued Darifenacin Hydrobromide 09/23/09 10/28/12 Discontinued [Mineral Oil] 09/16/09 09/23/09 Discontinued [Nasal [place]] 09/16/09 09/23/09 Discontinued Fish Oil/[place]-3 Fatty Acids 1 Tab PO DAILY 09/23/09 Active Fluticasone Propionate 1 [place] INH DAILY 09/23/09 Active [Mineral Oil] 09/23/09 06/03/11 Discontinued Omeprazole 20 Mg PO DAILY 09/23/09 Active Cyanocobalamin 1,000 Mcg PO DAILY 09/23/09 Active Ascorbic Acid 500 Mg PO DAILY 09/23/09 Active Vitamin E Mixed 1 Tab PO DAILY 09/23/09 09/10/11 Discontinued Loratadine 10 Mg PO DAILY 06/03/11 Active Sertraline Hcl 100 Mg PO BEDTIME 06/03/11 10/28/12 Discontinued Meloxicam 15 Mg PO DAILY 06/03/11 10/28/12 Discontinued Docusate Sodium 100 Mg PO DAILY 06/03/11 Active Ibuprofen 200 Mg PO NEEDED 10/28/12 Active Solifenacin 10 Mg PO DAILY 08/23/13 Active Tamsulosin Hcl 0.4 Mg PO BEDTIME 08/23/13 Active Carbamide Peroxide 15 Ml OT MONTHLY 08/23/13 Active Phenytoin 900 Mg BEDTIME 08/23/13 Active Lorazepam 0.5 Mg PO NEEDED 08/23/13 Active Sertraline Hcl 100 Mg PO DAILY 08/23/13 Active Social History Social History Problem Response Recorded Date/Time Smoking Status Unknown if ever smoked 08/22/2013 11:10pm Hx Alcohol Use No 08/22/2013 11:10pm Query Response Start Date Stop Date Smoking Status Never smoker Hospital Discharge Instructions No hospital discharge instructions. Plan of Care No plan of care. Functional Status Query Response Date Recorded Mental Status Alert August 23, 2013 2:30am Allergies, Adverse Reactions, Alerts Allergen Type Severity Reaction Status Last Updated Nitrofurantoin Macrocrystal Allergy Unknown Active 10/28/12 Penicillin Adverse Reaction Unknown Active 10/28/12 Iodine Allergy Unknown Active 10/28/12 Erythromycin base Allergy Unknown Active 10/28/12 Nitrofurantoin Allergy Unknown Active 10/28/12 Immunizations Name Given Type Hx Influenza Vaccination UNKWN Historical Hx Influenza Vaccination UNKWN Historical Vital Signs Acute Vital Signs Vital Response Date/Time Temperature (Fahrenheit) 98.4 deg F (96.8 - 99.1) Temperature (Calculated Celsius) 36.21601 degrees C (36.0 - 37.3) Pulse Rate (adult) 77 bpm (60 - 100) Respiratory Rate 18 breaths/min (10 - 20) O2 Sat by Pulse Oximetry 97 % (90 - 100) Blood Pressure 128/88 mm Hg Height 5 ft 7 in Weight 194 lb Body Mass Index 30.0 kg/m^2 Results Test Source Date Result Interp. Ref. Range Comments Alanine Aminotransferase (ALT/SGPT) November 12, 2011 1:05am 42 U/L N 21-72 Albumin November 12, 2011 1:05am 4.2 G/DL N 3.5-5.0 Albumin/Globulin Ratio November 12, 2011 1:05am 1.2 RATIO N 1.1-2.2 Alkaline Phosphatase November 12, 2011 1:05am 59 U/L N 38-126 Anion Gap November 12, 2011 1:05am 12 MEQ/L N 5-15 Aspartate Amino Transf (AST/SGOT) November 12, 2011 1:05am 26 U/L N 17- 59 BUN/Creatinine Ratio November 12, 2011 1:05am 23 RATIO N 6-26 Basophils # (Auto) November 12, 2011 1:05am 0.0 T/MM3 N 0-0.2 Basophils (%) (Auto) November 12, 2011 1:05am 0.3 % N 0-2 Blood Urea Nitrogen November 12, 2011 1:05am 18.0 MG/DL N 9-20 Calcium Level November 12, 2011 1:05am 9.4 MG/DL N 8.4-10.2 Calculated Osmolality November 12, 2011 1:05am 265 MOSM/KG N 261-280 Carbon Dioxide Level November 12, 2011 1:05am 25 MEQ/L N 22-30 Chloride Level November 12, 2011 1:05am 99 MEQ/L N 98-107 Conjugated Bilirubin November 12, 2011 1:05am 0.00 MG/DL N 0.00-0.30 Creatinine November 12, 2011 1:05am 0.8 MG/DL N 0.8-1.5 Eosinophils # (Auto) November 12, 2011 1:05am 0.2 T/MM3 N 0-0.5 Eosinophils (%) (Auto) November 12, 2011 1:05am 2.9 % N 0-4 Globulin November 12, 2011 1:05am 3.5 G/DL N 2.4-3.6 Glucose Level November 12, 2011 1:05am 108 MG/DL N 75-110 Hematocrit November 12, 2011 1:05am 44.6 % N 41-53 Hemoglobin November 12, 2011 1:05am 15.6 GM/DL N 13.5-17.5 Levetiracetam (Keppra) Level November 12, 2011 1:05am Ref lab rpt scanned - --- 11/16/11 0754 ---LEVET previously reported as: SEND OUT Lymphocytes # (Auto) November 12, 2011 1:05am 0.8 T/MM3 L 1-4.8 Lymphocytes (%) (Auto) November 12, 2011 1:05am 10.2 % L 23-45 Mean Corpuscular Hemoglobin November 12, 2011 1:05am 30.7 UUG N 26-34 Mean Corpuscular Hemoglobin Concent November 12, 2011 1:05am 35.0 GM/DL N 31-37 Mean Corpuscular Volume November 12, 2011 1:05am 87.8 UM3 N 80-100 Mean Platelet Volume November 12, 2011 1:05am 11.5 UM3 N 9.4-12.4 Monocytes # (Auto) November 12, 2011 1:05am 0.7 T/MM3 N 0-0.8 Monocytes (%) (Auto) November 12, 2011 1:05am 9.2 % H 0-9.0 Neutrophils # (Auto) November 12, 2011 1:05am 6.2 T/MM3 N 1.8-7.7 Neutrophils (%) (Auto) November 12, 2011 1:05am 77.1 % H 33-66 Phenytoin (Dilantin) Level July 27, 2008 9:25pm < 3.0 UG/ML L 10-20 Platelet Count November 12, 2011 1:05am 156 T/MM3 N 130-400 Potassium Level November 12, 2011 1:05am 3.5 MEQ/L L 3.6-5 RDW Standard Deviation November 12, 2011 1:05am 45.4 FL N 36.9-50.2 Red Blood Count November 12, 2011 1:05am 5.08 M/MM3 N 4.50-5.90 Sodium Level November 12, 2011 1:05am 136 MEQ/L N 134-144 Tests Not Done July 27, 2008 10:47pm Not done - Has specimen been collected/obtained? Y Thyroid Stimulating Hormone (TSH) September 23, 2009 10:05pm 0.84 MIU/ML N 0.47-4.68 Total Bilirubin November 12, 2011 1:05am 0.40 MG/DL N 0.20-1.30 Total Protein November 12, 2011 1:05am 7.7 G/DL N 6.3-8.2 Unconjugated Bilirubin November 12, 2011 1:05am 0.00 MG/DL N 0.00-1.10 Urine Amphetamines Screen November 12, 2011 1:00am Negative NG/ML - Urine Barbiturates Screen November 12, 2011 1:00am Negative NG/ML - Urine Benzodiazepines Screen November 12, 2011 1:00am Negative NG/ML - Urine Bilirubin November 12, 2011 1:00am Negative - Has specimen been collected/obtained? Y Urine Blood November 12, 2011 1:00am Negative - Has specimen been collected/obtained? Y Urine Cocaine Screen November 12, 2011 1:00am Negative NG/ML - Urine Collection Type November 12, 2011 1:00am Voided - Has specimen been collected/obtained? Y Urine Color November 12, 2011 1:00am Yellow - Has specimen been collected/obtained? Y Urine Glucose (UA) November 12, 2011 1:00am Negative - Has specimen been collected/obtained? Y Urine Ketones November 12, 2011 1:00am Negative - Has specimen been collected/obtained? Y Urine Leukocyte Esterase November 12, 2011 1:00am Negative - Has specimen been collected/obtained? Y Urine Methamphetamines Screen November 12, 2011 1:00am Negative NG/ML - Urine Nitrite November 12, 2011 1:00am Negative - Has specimen been collected/obtained? Y Urine Opiates Screen November 12, 2011 1:00am Negative NG/ML - Urine Phencyclidine Screen November 12, 2011 1:00am Negative NG/ML - Urine Protein November 12, 2011 1:00am Negative - Has specimen been collected/obtained? Y Urine Specific [place] November 12, 2011 1:00am 1.015 - Has specimen been collected/obtained? Y Urine Tricyclic Antidepressants November 12, 2011 1:00am Negative NG/ML - Urine Turbidity November 12, 2011 1:00am Clear - Has specimen been collected/obtained? Y Urine Urobilinogen November 12, 2011 1:00am Normal EU/DL - Has specimen been collected/obtained? Y Urine pH November 12, 2011 1:00am 6.5 - Has specimen been collected/ obtained? Y White Blood Count November 12, 2011 1:05am 8.0 T/MM3 N 4.5-11.0 Lab Scanned Report November 16, 2011 8:08am [facility]FER[facility] LAB [id number] - Urine Methadone Screen November 12, 2011 1:00am Negative NG/ML - Urine Cannabinoids Screen November 12, 2011 1:00am Negative NG/ML - Glomerular Filtration Rate Calc November 12, 2011 1:05am 102 - Immature Granulocyte # (Auto) November 12, 2011 1:05am 0.02 T/MM3 N 0.00-0.03 Immature Granulocyte % (Auto) November 12, 2011 1:05am 0.3 % N 0.0-0.5 Urine Acetaminophen Screen November 12, 2011 1:00am Negative NG/ML - Urine Microscopic Not Indicated November 12, 2011 1:00am Not indicated - Has specimen been collected/obtained? Y Gram Stain Abscess October 28, 2012 6:15pm Procedures No known history of procedures. Encounters Encounter Location Date/Time Departed Emergency Room [facility] 08/22/13 11:09pm Recent Diagnosis
[2016-05-23 16:53] VITALS: BP 116/69; PULSE 88; RESP 18; TEMP 97.8; O2SAT 98
--- NOTE | 2016-05-23 16:53 | NUR ---
DISCHARGE WRITTEN INSTRUCTIONS REVIEWED AND SENT WITH PT. PT VERBALIZES UNDERSTANDING OF DI, DENIES QUESTIONS. CONTINUES TO DENY COMPLAINT ON DISMISSAL. PT EXITS ER BY W/C PER [facility] AT THIS TIME.
--- OUTSIDE RECORDS SUMMARY | 2016-05-23 17:03 | XMS REPORT | Continuity of Care Document ---
Author Author [facility] Organization [facility] Address Unknown Phone Unavailable Care Team Providers Care Heavy Cleaner Name Role Phone COLBY SANCHEZ MD Primary Care Physician [phone] Insurance Providers Payer Name Policy Number Subscriber Name Relationship Medicare [id number] Hamilton Rodgers 17 Self Stefani [place] Margin[employer] Plan [id number] Hamilton Rodgers 17 Self Problems Medical Problems [...] Discontinued [Mineral Oil] 09/16/09 09/23/09 Discontinued [Nasal [place]] 09/16/09 09/23/09 Discontinued Fluticasone Propionate 1 [place] INH DAILY 09/23/09 Active [Mineral Oil] 09/23/09 [...] F (96.8 - 99.1) Temperature (Calculated Celsius) 36.69949 degrees C (36.0 - 37.3) Pulse Rate [...] Report November 16, 2011 8:08am REFERENCE LAB [id number] - Levetiracetam (Keppra) Level November 12, 2011 [...] Has specimen been collected/obtained? Y Urine Specific [place] September 01, 2013 1:20pm 1.010 L - [...] Encounters Encounter Location Date/Time Registered Emergency Room [facility] 09/01/13 9:27am Departed Emergency Room [facility] 08/22/13 11:09pm Recent Diagnosis
--- OUTSIDE RECORDS SUMMARY | 2016-05-23 17:03 | XMS REPORT | Continuity of Care Document ---
Author Author [facility] Organization [facility] Address Unknown Phone Unavailable Allergies Active [...] Nunez MD 729.5 PAIN IN LIMB 09/03/2014 Yova Nunez MD 780.79 OTH MALAISE FATIGUE 09/03/2014 [...] Status Pt. Type Provider Facility Loc./Unit Complaint [id number] 04/11/2013 15:34:00 04/11/2013 23 :59:59 CLS Outpatient [id number] 03/28/2013 16:14:00 03/28/2013 23 :59:59 CLS Outpatient [id number] 01/22/2013 13:27:00 01/22/2013 23 :59:59 CLS Outpatient
--- OUTSIDE RECORDS SUMMARY | 2016-05-23 17:05 | XMS REPORT | Continuity of Care Document ---
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 Type Provider Facility Loc./Unit Complaint [id number] 04/11/2013 15:34:00 04/11/2013 23 :59:59 CLS Outpatient [id number] 03/28/2013 16:14:00 03/28/2013 23 :59:59 CLS Outpatient [id number] 01/22/2013 13:27:00 01/22/2013 23 :59:59 CLS Outpatient
--- OUTSIDE RECORDS SUMMARY | 2016-05-23 17:06 | XMS REPORT | Continuity of Care Document ---
Author Author [facility] Organization [facility] Address Unknown Phone Unavailable Care Team Providers Care Derrick Boat Operator Name Role Phone COLBY SANCHEZ MD Primary Care Physician [phone] Insurance Providers Payer Name Policy Number Subscriber Name Relationship Medicare [id number] Hamilton Rodgers 17 Self Stefani [place] [employer] Plan [id number] Hamilton Rodgers 17 Self Problems Medical Problems [...] Discontinued [Mineral Oil] 09/16/09 09/23/09 Discontinued [Nasal [place]] 09/16/09 09/23/09 Discontinued Fish Oil/[place]-3 Fatty Acids 1 Tab PO DAILY 09/23/09 Active Fluticasone Propionate 1 [place] INH DAILY 09/23/09 Active [Mineral Oil] 09/23/09 [...] F (96.8 - 99.1) Temperature (Calculated Celsius) 36.78113 degrees C (36.0 - 37.3) Pulse Rate [...] Has specimen been collected/obtained? Y Urine Specific [place] November 12, 2011 1:00am 1.015 - Has [...] Report November 16, 2011 8:08am [facility]FER[facility] LAB [id number] - Urine Methadone Screen November 12, 2011 [...] Encounters Encounter Location Date/Time Departed Emergency Room [facility] 08/22/13 11:09pm Recent Diagnosis
== END 2016-05-23 16:53 | disposition home or self-care (01) ==
LOC: ED 16:32
DX: Z04.3 Encounter for examination and observation following other accident (principal); W18.30XA Fall on same level, unspecified, initial encounter; Y93.9 Activity, unspecified; Y92.009 Unspecified place in unspecified non-institutional (private) residence as the place of occurrence of the external cause; Y99.8 Other external cause status